=== PATIENT | male | born 1975 ===

== ENCOUNTER 2025-05-07 16:05 | Inpatient (IN) | payer OTHER ==
[~2025-05-07] VITALS: Ht 188 cm; Wt 97.0 kg
[2025-05-07 19:03] VITALS: BP 147/75
[2025-05-07 20:04] VITALS: BP 128/90
[2025-05-07] MEDS ORDERED: Ondansetron HCl 2 MG / ML 2ML Vial IV PRN (20:30)
[2025-05-07] MEDS ORDERED: Magnesium Hydroxide Conc 10 ML UDC PO PRN (20:30)
[2025-05-07] MEDS ORDERED: HYDROmorphone HCl/Pf 1MG SYR IV PRN (20:35)
[2025-05-07] MEDS ORDERED: Vancomycin (Pharmacy Consult) IV SCH (20:45)
[2025-05-07 20:52] LABS: BASOPHILS ABSOLUTE AUTO 0.11 K/mm3 (0.00-0.23); BASOPHILS PERCENT AUTO 1 % (0-2); EOSINOPHILS ABSOLUTE AUTO 0.03 K/mm3 (0.00-0.68); EOSINOPHILS PERCENT AUTO 0 % (0-6); Hematocrit 28.9 % (37.0-53.0); Hemoglobin 9.3 g/dL (13.5-17.5); IMMATURE GRAN ABSOLUTE AUTO 0.12 K/mm3 (0.00-0.10); IMMATURE GRAN PERCENT AUTO 1 % (0-1); LYMPHOCYTES ABSOLUTE AUTO 1.57 K/mm3 (0.84-5.20); LYMPHOCYTES PERCENT AUTO 12 % (21-46); MONOCYTES ABSOLUTE AUTO 0.93 K/mm3 (0.16-1.47); MONOCYTES PERCENT AUTO 7 % (4-13); Mean Corpuscular HGB Conc 32.2 g/dL (31.5-36.5); Mean Corpuscular Volume 87 fL (80-100); NEUTROPHILS ABSOLUTE AUTO 10.90 K/mm3 (1.96-9.15); NEUTROPHILS PERCENT AUTO 80 % (41-73); NRBC ABSOLUTE 0.00 K/mm3 (0.00-0.02); NRBC Auto 0.0 /100 WBC (0.0-0.2); Platelet Count 374 K/mm3 (150-400); RDW Coefficient Variation 12.4 % (11.7-14.2); RDW Standard Deviation 39.3 fL (35.1-46.3)
[2025-05-07] MEDS ORDERED: Lactobacil 2-S.Thermo-Bifido 1 1 Cap PO SCH (21:00)
[2025-05-07 21:11] LABS: Anion Gap 8.0 mmol/L (3-11); Blood Urea Nitrogen 10.0 mg/dL (8-24); CO2, Blood 23.0 mmol/L (21-32); Calcium, Blood 7.9 mg/dL (8.5-10.1); Chloride, Blood 107.0 mmol/L (98-108); Creatinine, Blood 1.25 mg/dL (0.60-1.20); Glucose, Blood 122.0 mg/dL (70-99); Potassium, Blood 3.7 mmol/L (3.5-5.5); Sodium, Blood 134.0 mmol/L (136-145)
--- NOTE | 2025-05-07 21:30 | NUR ---
ARRIVAL TO SURGICAL UNIT ROOM 211 AT 1858. PT IS A DIRECT ADMIT FROM [facility]. PT ARRIVED VIA NON EMERGENT TRANSPORT. PT TRANSFERED TO BED VIA SLIDER SHEET FROM [facility]. PT DENIES SOB, CHEST PAIN OR PRESSURE. ORIENTED TO ROOM, CALL LIGHT, AND UNIT POLICIES AND PROCEDURES. DENIES PAIN. MCDANIEL PRESENT ON ADMISSION. DRESSINGS IN PLACE TO BILATERAL FEET.
[2025-05-07] MEDS ORDERED: METF500 PO (21:35)
[2025-05-07] MEDS ORDERED: LISI20 PO (21:35)
[2025-05-07] MEDS ORDERED: GLIP5 PO (21:36)
[2025-05-07] MEDS ORDERED: GABA300 (21:38)
[2025-05-07] MEDS ORDERED: Insulin Glargine 100 Unit/ML 3 ML SYR SC SCH (21:45)
[2025-05-07] MEDS ORDERED: Piperacillin/Tazobactam Sod 4.5 GM in NS 100 ML IV SCH (23:17)
[2025-05-08] VITALS (7 sets, daily range): BP systolic 120–145; BP diastolic 61–77
[2025-05-08] MEDS ORDERED: Insulin Regular 100 UNIT/ML 10ML Vial SC SCH
[2025-05-08 02:37] LABS: Hematocrit 29.1 % (37.0-53.0); Hemoglobin 9.4 g/dL (13.5-17.5); Mean Corpuscular HGB Conc 32.3 g/dL (31.5-36.5); Mean Corpuscular Volume 86 fL (80-100); NRBC ABSOLUTE 0.00 K/mm3 (0.00-0.02); NRBC Auto 0.0 /100 WBC (0.0-0.2); Platelet Count 366 K/mm3 (150-400); RDW Coefficient Variation 12.3 % (11.7-14.2); RDW Standard Deviation 39.7 fL (35.1-46.3)
[2025-05-08 02:41] LABS: Alanine Aminotransfer (ALT/SGP 13.0 U/L (12-78); Albumin, Blood 1.7 g/dL (3.4-5.0); Albumin/Globulin Ratio 0.4 (0.8-1.8); Anion Gap 9.0 mmol/L (3-11); Aspartate Aminotrans (AST/SGOT 24.0 U/L (12-37); Bilirubin, Total 0.9 mg/dL (0.1-1.0); Blood Urea Nitrogen 11.0 mg/dL (8-24); CO2, Blood 23.0 mmol/L (21-32); Calcium, Blood 8.0 mg/dL (8.5-10.1); Chloride, Blood 105.0 mmol/L (98-108); Creatinine, Blood 1.22 mg/dL (0.60-1.20); Globulin, Blood 4.8 g/dL (2.2-4.0); Glucose, Blood 216.0 mg/dL (70-99); Potassium, Blood 3.6 mmol/L (3.5-5.5); Sodium, Blood 133.0 mmol/L (136-145); Total Protein, Blood 6.5 g/dL (6.4-8.2)
[2025-05-08 02:43] LABS: Prothrombin Time Results 13.0 Sec (9.7-11.5)
[2025-05-08 02:53] LABS: Vancomycin, Random 20.2 ug/mL
[2025-05-08 02:55] LABS: BAND PERCENT MAN 13 % (0-8); BASOPHILS ABSOLUTE MAN 0.00 K/mm3 (0.00-0.23); BASOPHILS PERCENT MAN 0 % (0-2); EOSINOPHILS ABSOLUTE MAN 0.00 K/mm3 (0.00-0.68); EOSINOPHILS PERCENT MAN 0 % (0-6); LYMPHOCYTES ABSOLUTE MAN 1.32 K/mm3 (0.84-5.20); LYMPHOCYTES PERCENT MAN 10 % (21-46); MONOCYTES ABSOLUTE MAN 0.66 K/mm3 (0.16-1.47); MONOCYTES PERCENT MAN 5 % (4-13); NEUTROPHILS ABSOLUTE MAN 11.24 K/mm3 (1.96-9.15); SEG NEUTROPHILS PERCENT MAN 72 % (41-73)
[2025-05-08] MEDS ORDERED: NS 250 ML IV PRN (04:30)
--- NOTE | 2025-05-08 08:06 | NUR ---
SHIFT SUMMARY NOC. PT DIRECT ADMIT FROM [facility] THIS SHIFT. PT A/O X4, MAKES NEEDS KNOWN AND DENIES PAIN. DRESSINGS FOR WOUNDS ON BILATERAL FEET CHANGED IN PRESENCE OF RESIDENT THIS SHIFT. PICTURES OBTAINED AND PLACED IN CHART. PT'S MCDANIEL IS PATENT AND DRAINING TO GRAVITY. PT NPO SINCE 0000 FOR POTENTIAL PROCEDURE. DAY SHIFT RN TO NOTIFY PODIATRY OF CONSULT, PASSED INFORMATION TO ONCOMING RN. CALL LIGHT IN REACH.
[2025-05-08] MEDS ORDERED: Polyethylene Glycol 3350 17 gm PO PRN (08:45)
--- NOTE | 2025-05-08 09:13 | NUR ---
CONSULT: PODIATRY CONSULT CALLED TO DR ALVA AT THIS TIME.
[2025-05-08] MEDS ORDERED: Insulin Human Lispro 100 Units/ML 3ML Syringe SC SCH (16:30)
[2025-05-08] MEDS ORDERED: Docusate Sodium/Senna 1 Tab PO SCH (21:00)
[2025-05-08] MEDS ORDERED: Insulin Glargine 100 Unit/ML 3 ML SYR SC SCH (21:00)
[2025-05-09] VITALS (13 sets, daily range): BP systolic 119–165; BP diastolic 59–78
[2025-05-09 05:54] LABS: Hematocrit 26.0 % (37.0-53.0); Hemoglobin 8.4 g/dL (13.5-17.5); Mean Corpuscular HGB Conc 32.3 g/dL (31.5-36.5); Mean Corpuscular Volume 86 fL (80-100); NRBC ABSOLUTE 0.00 K/mm3 (0.00-0.02); NRBC Auto 0.0 /100 WBC (0.0-0.2); Platelet Count 324 K/mm3 (150-400); RDW Coefficient Variation 12.3 % (11.7-14.2); RDW Standard Deviation 39.3 fL (35.1-46.3)
[2025-05-09 06:14] LABS: Albumin, Blood 1.5 g/dL (3.4-5.0); Anion Gap 9 mmol/L (3-11); Blood Urea Nitrogen 13 mg/dL (8-24); CO2, Blood 23 mmol/L (21-32); Calcium, Blood 7.9 mg/dL (8.5-10.1); Chloride, Blood 107 mmol/L (98-108); Creatinine, Blood 1.47 mg/dL (0.60-1.20); Ferritin, Serum 1185 ng/mL (26-388); Glucose, Blood 200 mg/dL (70-99); Magnesium, Blood 1.8 mg/dL (1.6-2.4); Phosphorus, Blood 3.5 mg/dL (2.5-4.9); Potassium, Blood 3.5 mmol/L (3.5-5.5); Sodium, Blood 135 mmol/L (136-145); Total Iron Binding Capacity 103 ug/dL (250-450)
--- NOTE | 2025-05-09 06:36 | NUR ---
SHIFT SUMMARY PT DIRECT ADMIT FOR [facility] ON 05/07/25. 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 A&O X4. PT MAKES NEEDS KNOWN, USES CALL LIGHT APPROPRIATELY, AND DENIES PAIN. PT REPORTS INCONTINENCE OF BM X2 SINCE ADMISSION. VSS. CONTINUOUS PULSE OX IN PLACE SPO2 97%. PT HAS DRESSING APPLIED TO BILATERAL FEET. PT C/O INCREASED WEAKNESS THROUGHOUT SHIFT AND UNABLE TO ASSIST WITH TRANSFER. EDUCATED REGARDING FALL PRECAUTIONS. PT RESTING IN BED, RESPIRATIONS EVEN AND UNLABORED. CALL LIGHT WITHIN REACH.
--- NOTE | 2025-05-09 08:48 | NUR ---
DR SMITH IN TO SEE PT.
[2025-05-09] MEDS ORDERED: Insulin Human Lispro 100 Units/ML 3ML Syringe SC SCH (12:00)
--- NOTE | 2025-05-09 15:35 | NUR ---
SHIFT SUMMARY PT IS A/OX4. RESTING IN BED. FOLLEY PATENT AND DRAINING TO GRAVITY, YELLOW URINE. PT IS BED REST, 2X TO MOVE. ATTENDS IN PLACE DUE TO EPISODES OF INCONTINENCE. PLAN IS FOR R BKA. L FOOT WOUND CARE COMPLETED PER ORDERS. PT IS NPO AWAITING SURGERY. CALL LIGHT IN REACH, BED IN LOWEST POSITION ABLE TO MAKE NEEDS KNOWN.
[2025-05-09 16:44] LABS: Vancomycin, Trough 31.9 ug/mL (5.0-10.0)
--- NOTE | 2025-05-09 17:08 | NUR ---
PT TO PRE OP
[2025-05-09] MEDS ORDERED: FentaNYL Citrate 50 MCG/ML 2 ML Injection IV PRN ×4 (17:10→19:25)
[2025-05-09] MEDS ORDERED: Albuterol 2.5 MG/3 ML VIAL INH PRN ×2 (17:10→19:25)
[2025-05-09] MEDS ORDERED: ePHEDrine Sulfate 50 MG/ML 1ML Injection IV PRN ×2 (17:10→19:25)
[2025-05-09] MEDS ORDERED: Ondansetron HCl 2 MG / ML 2ML Vial IV PRN ×2 (17:10→19:25)
[2025-05-09] MEDS ORDERED: HydrALAZINE HCl 20 MG / ML 1ML Vial IV PRN ×2 (17:10→19:20)
[2025-05-09] MEDS ORDERED: HYDROmorphone HCl/Pf 1MG SYR IV PRN ×3 (17:10→19:20)
[2025-05-09] MEDS ORDERED: Metoclopramide HCl 5MG / ML 2ML Vial IV PRN ×2 (17:15→19:25)
--- NOTE | 2025-05-09 17:17 | NUR ---
TRANSFER OF CARE PT TAKEN TO DAY SURGERY
[2025-05-09] MEDS ORDERED: Dexamethasone Sod Phos 10 MG/ML 1ML VIAL ONE (17:20)
[2025-05-09] MEDS ORDERED: Bupivacaine 0.5% HCl 5 MG/ML 30MLVIAL ONE (17:21)
[2025-05-09] MEDS ORDERED: Bupivacaine HCl 0.25% 30 ML Injection ONE (17:21)
[2025-05-09] MEDS ORDERED: Midazolam HCl 1MG / ML 2ML Vial ONE (17:26)
[2025-05-09] MEDS ORDERED: Ondansetron HCl 2 MG / ML 2ML Vial ONE (18:27)
[2025-05-09] MEDS ORDERED: Phenylephrine HCl 100 MCG/ML-NS 10MLSYR (1MG/10ML) ONE (18:27)
[2025-05-09] MEDS ORDERED: FentaNYL Citrate 50 MCG/ML 2 ML Injection ONE (18:39)
[2025-05-09] MEDS ORDERED: ePHEDrine Sulfate 50 MG/ML 1ML Injection ONE (19:01)
--- NOTE | 2025-05-09 20:08 | NUR ---
ARRIVAL TO UNIT PT ARRIVED TO UNIT VIA HOSPITAL BED FROM PACU @1945. S/P R BKA. STUMP SOCK IN PLACE C/D/I. PT DENIES PAIN OR NAUSEA. VSS. TOLERATING PO INTAKE. MCDANIEL DRAINING TO GRAVITY.
[2025-05-09] MEDS ORDERED: Insulin Glargine 100 Unit/ML 3 ML SYR SC SCH (21:00)
[2025-05-10 03:56] VITALS: BP 163/78
--- NOTE | 2025-05-10 04:21 | NUR ---
SHIFT SUMMARY POD 1 R BKA. A&O X4. STUMP SOCK IN PLACE C/D/I. PT DENIES PAIN, N&V. VSS. MCDANIEL PATENT AND DRAINING CLEAR YELLOW URINE TO GRAVITY. STAT LOCK IN PLACE. PLACED POST OP SHOE ON LEFT FOOT. CONTINUOUS PULSE OX IN PLACE SPO2 98% ON RA. PT RESTING IN BED, RESPIRATIONS EVEN AND UNLABORED. CALL LIGHT WITHIN REACH.
[2025-05-10 06:05] LABS: Hematocrit 30.8 % (37.0-53.0); Hemoglobin 9.9 g/dL (13.5-17.5); Mean Corpuscular HGB Conc 32.1 g/dL (31.5-36.5); Mean Corpuscular Volume 86 fL (80-100); NRBC ABSOLUTE 0.00 K/mm3 (0.00-0.02); NRBC Auto 0.0 /100 WBC (0.0-0.2); Platelet Count 340 K/mm3 (150-400); RDW Coefficient Variation 12.2 % (11.7-14.2); RDW Standard Deviation 38.7 fL (35.1-46.3)
[2025-05-10 06:25] LABS: Albumin, Blood 1.7 g/dL (3.4-5.0); Anion Gap 14 mmol/L (3-11); Blood Urea Nitrogen 16 mg/dL (8-24); CO2, Blood 20 mmol/L (21-32); Calcium, Blood 8.2 mg/dL (8.5-10.1); Chloride, Blood 101 mmol/L (98-108); Creatinine, Blood 0.65 mg/dL (0.60-1.20); Glucose, Blood 342 mg/dL (70-99); Magnesium, Blood 1.9 mg/dL (1.6-2.4); Phosphorus, Blood 4.4 mg/dL (2.5-4.9); Potassium, Blood 4.1 mmol/L (3.5-5.5); Sodium, Blood 131 mmol/L (136-145); Vancomycin, Random 21.9 ug/mL
[2025-05-10 07:05] VITALS: BP 161/71
[2025-05-10] MEDS ORDERED: Insulin Human Lispro 100 Units/ML 3ML Syringe SC SCH (07:30)
[2025-05-10 14:09] VITALS: BP 128/66
[2025-05-10 16:36] LABS: Vancomycin, Random 15.3 ug/mL
--- NOTE | 2025-05-10 16:56 | NUR ---
summary NO ACUTE CHANGES T/O SHIFT. PT WORKED IWTH THERAPY AND SAT UP IN CHAIR FOR SEVERAL HOURS. PT CONTINUES TO BE INCONTINENT OF STOOL. MCDANIEL CATH DC'D TODAY, PT VOIDING IN URINAL. CALL LIGHT IN REACH.
--- NOTE | 2025-05-10 18:21 | NUR ---
CHANGED DRESSING TO L FOOT PER ORDERS.
[2025-05-10 19:19] VITALS: BP 121/68
--- NOTE | 2025-05-11 05:31 | NUR ---
SHIFT SUMMARY POD 2 R BKA. A&O X4. STUMP SOCK IN PLACE C/D/I. PT DENIES PAIN, N&V. VSS. CONTINUOUS PULSE OX IN PLACE SPO2 98% ON RA. PT CONTINUES TO BE INCONTINENT OF STOOL. PT VOIDING USING URINAL. KERLEX AND CAROLA WRAP PLACED ON L FOOT BY PREVIOUS SHIFT C/D/I. PT RESTING IN BED, RESPIRATIONS EVEN AND UNLABORED. CALL LIGHT WITHIN REACH.
[2025-05-11 06:10] VITALS: BP 140/73
[2025-05-11 07:19] VITALS: BP 150/87
[2025-05-11] MEDS ORDERED: Diphenoxylat/Atrop 2.5 / 0.025MG 1 Tab PO PRN (10:40)
[2025-05-11 12:07] LABS: C DIFFICILE DNA NEGATIVE (Negative)
[2025-05-11 14:28] VITALS: BP 127/63
--- NOTE | 2025-05-11 17:25 | NUR ---
SHIFT SUMMARY PT IS A/OX4. PT IS 1XFWW AND GB. REQUIRES VERBAL CUES. PT HAS HAD ONE EPISODE OF INCONT STOOL TODAY WAS ABLE TO AMBULATE TO [facility] FOR REMAINDER. USING URINAL IND. NO TELE. PT VSS ON RA. DRESSING ON L FOOT CHANGED PER ORDERS. PT DENIES PAIN AND N/V. PT IS WANTING TO GO HOME. IV PULLED THIS AM, ORDER FOR NO IV OBTAINED. DR DOUGLAS CHANGED R BKA DRESSING. CALL LIGHT IN REACH
[2025-05-11 19:43] VITALS: BP 147/90
[2025-05-12 04:45] VITALS: BP 145/72
--- NOTE | 2025-05-12 06:49 | NUR ---
SHIFT SUMMARY NOC. PT POD 3 FOR RIGHT BKA. R STUMP SOCK IS C/D/I, DRESSING TO LEFT FOOT IS C/D/I. PT TOLERATING DIET, DENIES PAIN, PT VOIDING URINE. PT MAKES NEEDS KNOWN, CALL LIGHT IN REACH.
[2025-05-12 07:40] VITALS: BP 162/80
[2025-05-12 14:42] VITALS: BP 132/70
--- NOTE | 2025-05-12 16:47 | NUR ---
SHIFT SUMMARY NO ACUTE EVENTS THIS SHIFT. PATIENT ALERT AND ORIENTED X4. RESTING T/O DAY - EASILY AROUSABLE W/ VERBAL STIMULI. COMMUNICATES NEEDS EFFECTIVELY. VSS. HTN IMPROVED W/ SCHEDULED LISINOPRIL PER EMAR. POD 3 R BKA. DENIES PAIN. CAROLA WRAP W/ STUMP SOCK C/D/I. 1P ASSIST W/ TRANSFERS. BED MOBILE. ENCOURAGING INCREASED MOBILITY T/O DAY - UP ON SIDE OF BED W/ MEALS. DRESSING TO L PLANTAR FOOT WOUND CHANGED PER ORDERS - DRESSING REMAINS C/D/I. TOLERATING PO INTAKE. VOIDING. EPISODES OF INCONTINENT STOOL - CHANGING ATTENDS PRN TO KEEP C/D/I. BEDBATH PERFORMED. NO IV ACCESS PER ORDERS. CALL LIGHT IN REACH.
[2025-05-12 19:53] VITALS: BP 147/71
[2025-05-12] MEDS ORDERED: Insulin Glargine 100 Unit/ML 3 ML SYR SC SCH (21:00)
--- NOTE | 2025-05-12 21:48 | NUR ---
REPORT GIVEN TO ZAID, MEDICAL FLOOR NURSE FOR TRANSFER OF PRIMARY NURSING CARE AT [id number].
--- NOTE | 2025-05-12 22:03 | NUR ---
PT LEFT SURGICAL FLOOR ROOM 211 AT 2200 WITH MEDICATIONS AND BELONGINGS. LEFT FLOOR VIA HOSPITAL BED WITH STUDENT TEACHING COORDINATORJOSE MUHAMMAD.
[2025-05-13 03:49] VITALS: BP 145/74
[2025-05-13 07:22] VITALS: BP 158/77
[2025-05-13] MEDS ORDERED: GABA300 PO (12:37)
[2025-05-13] MEDS ORDERED: DIPATR PO (12:37)
[2025-05-13] MEDS ORDERED: INSULANPEN SC (12:37)
[2025-05-13] MEDS ORDERED: HUMALOG KW100 UNIT/1 SC (12:38)
[2025-05-13] MEDS ORDERED: TAMS.4ER PO (12:38)
--- NOTE | 2025-05-13 14:09 | NUR ---
DISCHARGE PT DISCHARGED TO SNF IN [place]. RN ATTEMPTED TO CONTACT FOR REPORT AND NO ANSWER, WILL ATTEMPT TO CALL BACK AT A LATER TIME. PT ABLE TO STAND PIVOT INDEPENDENTLY TO . DISCHARGE PACKET PROVIDED TO [facility]. NO IOV ACCESS TO BE REMOVED.
--- NOTE | 2025-05-13 14:54 | NUR ---
RN ATTEMPTED AGAIN TO PROVIDE REPORT TO SNF VIA PHONE - NO ANSWER AT THIS TIME. VOICEMAIL LEFT AND AWAITING CALL BACK.
== END 2025-05-13 13:42 | DRG 240 ==
LOC: SURS 16:05 → MEDS 05-12 22:16 → ENPENDDIS 05-13 11:31 → MEDS 05-13 13:42
PROVIDERS: Internal Medicine; Nurse Practitioner Acute Care; Orthopaedic Surgery; Student in an Organized Health Care Education/Training Program; ADMIT Internal Medicine
PROC: 3E03329 Introduction of Other Anti-infective into Peripheral Vein, Percutaneous Approach (ICD-10-PCS; 2025-05-07)
PROC: 0Y6H0Z1 Detachment at Right Lower Leg, High, Open Approach (ICD-10-PCS; principal; 2025-05-09 18:00)
DX: E11.52 Type 2 diabetes mellitus with diabetic peripheral angiopathy with gangrene (principal); E87.1 Hypo-osmolality and hyponatremia; L03.115 Cellulitis of right lower limb; L03.116 Cellulitis of left lower limb; M86.171 Other acute osteomyelitis, right ankle and foot; I96 Gangrene, not elsewhere classified; E11.628 Type 2 diabetes mellitus with other skin complications; E11.621 Type 2 diabetes mellitus with foot ulcer; D64.9 Anemia, unspecified; R19.7 Diarrhea, unspecified; L97.522 Non-pressure chronic ulcer of other part of left foot with fat layer exposed; L97.514 Non-pressure chronic ulcer of other part of right foot with necrosis of bone; E11.65 Type 2 diabetes mellitus with hyperglycemia; E11.69 Type 2 diabetes mellitus with other specified complication; Z79.899 Other long term (current) drug therapy; Z79.84 Long term (current) use of oral hypoglycemic drugs; Z91.148 Patient's other noncompliance with medication regimen for other reason; Z98.890 Other specified postprocedural states
CPT/HCPCS: 36415; 73630; 80048; 80053; 80069; 80202; 82728; 82947; 83036; 83540; 83550; 83735; 85025; 85027; 85610; 85730; 87040; 87493; 88307; 93925; 94762; 97110; 97112; 97162; 97530; A9270; J1100; J1815; J2250; J2371; J2405; J2543; J2704; J3010; J3373; J7050; J7120